=== PATIENT | female | born 1970 | race Caucasian/White ===

== ENCOUNTER → 2017-09-06 | Outpatient (CLI) | payer BC ==
[2017-09-06 14:25] LABS: MEAN CORPUSCULAR HEMOGLOBIN 29.5 pg (27.0-33.0); MEAN CORPUSCULAR HGB CONC 32.5 g/dl (32.0-36.5); MEAN CORPUSCULAR VOLUME 90.9 fl (80.0-96.0); PLATELET COUNT, AUTOMATED 268 10^3/uL (150-450); RED CELL DISTRIBUTION WIDTH 13.2 % (11.5-14.5); WHITE BLOOD COUNT 6.1 10^3/uL (4.0-10.0)
[2017-09-06 14:37] LABS: THYROXINE (T4) 7.4 UG/DL (4.5-12.0)
== END ==
LOC: M SMT 09:12
PROVIDERS: ATTEND Advanced Practice Midwife
DX: R53.83 Other fatigue (principal)

== ENCOUNTER → 2017-12-07 | Outpatient (REF) | payer BC ==
[2017-12-07 13:20] LABS: INFLUENZA A AMPLIFICATION NEGATIVE (NEGATIVE); INFLUENZA B AMPLIFICATION NEGATIVE (NEGATIVE)
== END ==
LOC: M LAB REF 12:37
DX: J11.1 Influenza due to unidentified influenza virus with other respiratory manifestations (principal)

== ENCOUNTER → 2018-11-08 | Outpatient (CLI) | payer BC ==
--- NOTE | 2018-11-08 15:38 | REP ---
Clinical: Cough and fever. Technique: PA and lateral. Findings: Left suprahilar opacity consistent with infiltrate requires followup to resolution. Cardiac silhouette is normal. Remainder of lung duggan are clear. No effusion. No pneumothorax. Skeletal structures intact. Impression: Left suprahilar infiltrate. Follow-up to resolution is recommended. Differential diagnosis includes acute pneumonia or significant pathology such as neoplasm cannot be excluded. Electronically Signed by Madhu Cortez MD 11/08/2018 03:29 P
== END ==
LOC: M RAD 14:38
PROVIDERS: ATTEND Physician Assistant
DX: R05 Cough (principal); R50.9 Fever, unspecified; R91.8 Other nonspecific abnormal finding of lung field

== ENCOUNTER → 2018-11-08 | Outpatient (REF) | payer BC ==
[2018-11-08 15:50] LABS: INFLUENZA A AMPLIFICATION NEGATIVE (NEGATIVE); INFLUENZA B AMPLIFICATION NEGATIVE (NEGATIVE)
== END ==
LOC: M LAB REF 10:45
PROVIDERS: ATTEND Physician Assistant
DX: J11.1 Influenza due to unidentified influenza virus with other respiratory manifestations (principal)

== ENCOUNTER → 2018-11-18 | Outpatient (CLI) | payer BC ==
[2018-11-18 17:55] LABS: HEMATOCRIT 42.3 % (36.0-47.0); HEMOGLOBIN 13.8 g/dl (12.0-15.5); MEAN CORPUSCULAR HEMOGLOBIN 28.4 pg (27.0-33.0); MEAN CORPUSCULAR HGB CONC 32.6 g/dl (32.0-36.5); PLATELET COUNT, AUTOMATED 262 10^3/uL (150-450); RED BLOOD COUNT 4.86 10^6/uL (4.00-5.40); WHITE BLOOD COUNT 7.8 10^3/uL (4.0-10.0)
[2018-11-18 18:01] LABS: FREE T4 0.86 NG/DL (0.76-1.46)
[2018-11-18 18:02] LABS: FOLLICLE STIMULATING HORMONE 3.1 mIU/mL; LUTEINIZING HORMONE 3.8 mIU/mL
[2018-11-18 18:07] LABS: HCG, SERUM QUALITATIVE NEGATIVE (NEGATIVE)
[2018-11-21 16:26] LABS: HPV HYBRID CAPTURE II Negative (Negative)
== END ==
LOC: M SMT 10:20
PROVIDERS: ATTEND Advanced Practice Midwife
DX: N92.4 Excessive bleeding in the premenopausal period (principal); Z11.51 Encounter for screening for human papillomavirus (HPV)
CPT/HCPCS: 36415; 83001; 83002; 84439; 84443; 84703; 85027; 87624; G0123

== ENCOUNTER → 2020-03-31 | Outpatient (CLI) | payer BC, OTHER ==
[2020-03-31 12:35] LABS: BASO # 0.1 10^3/uL (0.0-0.2); BASO % 1.9 % (0.0-1.0); EOS # 0.1 10^3/uL (0.0-0.5); EOS % 2.1 % (0.0-3.0); HEMOGLOBIN 13.6 g/dl (12.0-15.5); LYMPH # 1.7 10^3/uL (1.5-5.0); LYMPH % 29.8 % (24.0-44.0); MEAN CORPUSCULAR HEMOGLOBIN 29.7 pg (27.0-33.0); MEAN CORPUSCULAR HGB CONC 32.4 g/dl (32.0-36.5); MEAN CORPUSCULAR VOLUME 91.7 fl (80.0-96.0); MONO # 0.4 10^3/uL (0.0-0.8); MONO % 6.4 % (0.0-5.0); NEUTROPHILS # 3.4 10^3/uL (1.5-8.5); NEUTROPHILS % 59.5 % (36.0-66.0); PLATELET COUNT, AUTOMATED 242 10^3/uL (150-450); RED BLOOD COUNT 4.58 10^6/uL (4.00-5.40); WHITE BLOOD COUNT 5.8 10^3/uL (4.0-10.0)
[2020-03-31 12:55] LABS: BLOOD UREA NITROGEN 14 MG/DL (7-18); CALCIUM LEVEL 8.6 MG/DL (8.5-10.1); CARBON DIOXIDE LEVEL 27 MEQ/L (21-32); CHLORIDE LEVEL 109 MEQ/L (98-107); CREATININE FOR GFR 0.74 MG/DL (0.55-1.30); GLOMERULAR FILTRATION RATE > 60.0 (>58); GLUCOSE, FASTING 90 MG/DL (70-100); POTASSIUM SERUM 4.5 MEQ/L (3.5-5.1); SODIUM LEVEL 141 MEQ/L (136-145)
[2020-03-31 13:06] LABS: MALB URINE SIEMENS 7.4 MG/L; MAU/CREAT RATIO 5.1 MCG/MG (0.0-30.0)
[2020-03-31 13:19] LABS: APPEARANCE, URINE CLEAR (CLEAR); BACTERIA, URINE AUTO NEGATIVE (NEGATIVE); BILIRUBIN, URINE AUTO NEGATIVE (NEGATIVE); BLOOD, URINE BLOOD NEGATIVE (NEGATIVE); COLOR, URINE YELLOW (YELLOW); GLUCOSE, URINE (UA) AUTO NEGATIVE (NEGATIVE); KETONE, URINE AUTO NEGATIVE (NEGATIVE); LEUKOCYTE ESTERASE, URINE AUTO NEGATIVE (NEGATIVE); NITRITE, URINE AUTO NEGATIVE (NEGATIVE); PROTEIN, URINE AUTO NEGATIVE (NEGATIVE); RBC, URINE AUTO 2 /HPF (0-3); SQUAMOUS EPITHELIAL CELL UR AU 1 /HPF (0-6); UROBILINOGEN, URINE AUTO 0.2 mg/dL (0.0-2.0); WBC, URINE AUTO 0 /HPF (0-3)
[2020-03-31 13:34] LABS: HEMOGLOBIN A1c 5.9 %
== END ==
LOC: M WUC 10:21
PROVIDERS: ATTEND Internal Medicine Nephrology
DX: Z00.5 Encounter for examination of potential donor of organ and tissue (principal)

== ENCOUNTER → 2020-04-15 | Outpatient (CLI) | payer OTHER ==
[2020-04-15 10:45] LABS: APPEARANCE, URINE CLEAR (CLEAR); BACTERIA, URINE AUTO 1+ (NEGATIVE); BILIRUBIN, URINE AUTO NEGATIVE (NEGATIVE); BLOOD, URINE BLOOD NEGATIVE (NEGATIVE); COLOR, URINE YELLOW (YELLOW); GLUCOSE, URINE (UA) AUTO NEGATIVE (NEGATIVE); KETONE, URINE AUTO NEGATIVE (NEGATIVE); LEUKOCYTE ESTERASE, URINE AUTO NEGATIVE (NEGATIVE); MUCUS, URINE SMALL (NEGATIVE); NITRITE, URINE AUTO NEGATIVE (NEGATIVE); PROTEIN, URINE AUTO NEGATIVE (NEGATIVE); RBC, URINE AUTO 0 /HPF (0-3); SPECIFIC GRAVITY URINE AUTO 1.014 (1.002-1.035); SQUAMOUS EPITHELIAL CELL UR AU 0 /HPF (0-6); UROBILINOGEN, URINE AUTO 0.2 mg/dL (0.0-2.0); WBC, URINE AUTO 1 /HPF (0-3)
[2020-04-15 11:09] LABS: GLOMERULAR FILTRATION RATE > 60.0 (>58)
[2020-04-15 11:20] LABS: MALB URINE SIEMENS 5.9 MG/L; MAU/CREAT RATIO 4.2 MCG/MG (0.0-30.0)
[2020-04-15 11:23] LABS: CREATININE 24 HOUR, URINE 1407.9 MG/24HR (600-1800); CREATININE, URINE 72.2 MG/DL; TOTAL PROTEIN 24 HOUR URINE 128.7 MG/24HR (50-150); URINE TOTAL PROTEIN 6.6 MG/DL (0-12)
== END ==
LOC: M LAB 09:52
PROVIDERS: ATTEND Internal Medicine Nephrology
DX: Z00.5 Encounter for examination of potential donor of organ and tissue (principal)

== ENCOUNTER → 2020-10-14 | Outpatient (CLI) | payer OTHER ==
[~2020-10-14] MED LIST: ALBU8.5H; FAMO40TA3; METH27TA5; SERT-138
== END ==
LOC: M LABSMTC 12:42
PROVIDERS: ATTEND Anesthesiology
DX: Z01.812 Encounter for preprocedural laboratory examination (principal); Z20.828 Contact with and (suspected) exposure to other viral communicable diseases

== ENCOUNTER 2020-10-19 09:10 | Day surgery (SDC) | payer BC ==
[~2020-10-19] VITALS: Ht 167.6 cm; Wt 85.3 kg
[~2020-10-19 09:10] MED LIST changes: +NS 1,000 ML IV ONE
[2020-10-19] MEDS ORDERED: propofoL 200 MG/20 ML VIAL As Ordered ONE ×2 (10:35→11:15)
[2020-10-19] MEDS ORDERED: fentaNYL 100 MCG/2 ML INJECTION (J3010) As Ordered ONE (10:35)
[2020-10-19] MEDS ORDERED: LIDOCAINE 2% 100MG/5ML SDV (FOR ANES.) As Ordered ONE (10:35)
--- NOTE | 2020-10-19 11:24 | ROOR ---
Patient Name: Anna Souza Procedure Date: 10/19/2020 11:05 AM Date of : 1970 Age: 50 Room: [facility] Gender: Female Note Status: Finalized Procedure: Upper Endoscopy + Biopsies Indications: Heartburn, Exclusion of Castellano's esophagus Providers: Noe Ingram MD Referring MD: Tino Venegas MD Requesting Provider: Medicines: Monitored Anesthesia Care Complications: No immediate complications. Procedure: Pre-Anesthesia Assessment: - The heart rate, respiratory rate, oxygen saturations, blood pressure, adequacy of pulmonary ventilation, and response to care were monitored throughout the procedure. The Endoscope was introduced through the mouth, and advanced to the second part of duodenum. The upper GI endoscopy was accomplished without difficulty. The patient tolerated the procedure well. Findings: The Z-line was variable and was found 35 cm from the incisors. Multiple biopsies were obtained with cold forceps for evaluation to rule out Castellano's Esophagus randomly at the gastroesophageal junction. A small hiatal hernia was present. Localized mild inflammation characterized by congestion (edema) and erythema was found in the gastric antrum. Biopsies were taken with a cold forceps for Helicobacter pylori testing. The exam of the duodenum was otherwise normal. Impression: - Z-line variable, 35 cm from the incisors. - Small hiatal hernia. - Mucosal changes suspicious for gastritis. Biopsied. - Multiple biopsies were obtained at the gastroesophageal junction. - The examination was otherwise normal. Recommendation: - Patient has a contact number available for emergencies. The signs and symptoms of potential delayed complications were discussed with the patient. Return to normal activities tomorrow. Written discharge instructions were provided to the patient. - High fiber diet. - Discharge patient to home. - Follow an antireflux regimen. - Continue present medications. - Await pathology results. - Telephone GI clinic for pathology results in 1 week. - Return to referring physician. - The findings and recommendations were discussed with the patient. Procedure Code(s): --- Professional --- 28377, Esophagogastroduodenoscopy, flexible, transoral; with biopsy, single or multiple Diagnosis Code(s): --- Professional --- K22.8, Other specified diseases of esophagus K44.9, Diaphragmatic hernia without obstruction or gangrene K31.89, Other diseases of stomach and duodenum R12, Heartburn CPT copyright 2019 [employer]. All rights reserved. The codes documented in this report are preliminary and upon hims coder review may be revised to meet current compliance requirements. Noe Ingram MD Noe Ingram MD 10/19/2020 11:24:11 AM Electronically signed by Noe Ingram MD Number of Addenda: 0 Note Initiated On: 10/19/2020 11:05 AM Estimated Blood Loss: Estimated blood loss: none.
--- NOTE | 2020-10-19 11:36 | ROOR ---
Patient Name: Anna Souza Procedure Date: 10/19/2020 11:06 AM Date of : 1970 Age: 50 Room: [facility] Gender: Female Note Status: Finalized Procedure: Total Colonoscopy to Cecum + ileoscopy Indications: Screening for colorectal malignant neoplasm, Incidental - Preoperative assessment Providers: Noe Ingram MD Referring MD: Tino Venegas MD Requesting Provider: Medicines: Monitored Anesthesia Care Complications: No immediate complications. Procedure: Pre-Anesthesia Assessment: - The heart rate, respiratory rate, oxygen saturations, blood pressure, adequacy of pulmonary ventilation, and response to care were monitored throughout the procedure. The Colonoscope was introduced through the anus and advanced to the terminal ileum. The colonoscopy was performed without difficulty. The patient tolerated the procedure well. The quality of the bowel preparation was excellent. Findings: The perianal and digital rectal examinations were normal. Non-bleeding internal hemorrhoids were found during retroflexion. The hemorrhoids were small and Grade I (internal hemorrhoids that do not prolapse). No other significant abnormalities were identified in a careful examination of the remainder of the colon. The terminal ileum appeared normal. The exam was otherwise without abnormality on direct and retroflexion views. Impression: - Non-bleeding internal hemorrhoids. - The examined portion of the ileum was normal. - The examination was otherwise normal on direct and retroflexion views. - No specimens collected. - The exam was otherwise normal to the cecum. Recommendation: - Patient has a contact number available for emergencies. The signs and symptoms of potential delayed complications were discussed with the patient. Return to normal activities tomorrow. Written discharge instructions were provided to the patient. - High fiber diet. - Discharge patient to home. - Continue present medications. - Repeat colonoscopy in 10 years for screening purposes. - Return to referring physician. - The findings and recommendations were discussed with the patient. Procedure Code(s): --- Professional --- 27115, Colonoscopy, flexible; diagnostic, including collection of specimen(s) by brushing or washing, when performed (separate procedure) Diagnosis Code(s): --- Professional --- Z12.11, Encounter for screening for malignant neoplasm of colon K64.0, First degree hemorrhoids CPT copyright 2019 [employer]. All rights reserved. The codes documented in this report are preliminary and upon commercial project manager review may be revised to meet current compliance requirements. Noe Ingram MD Noe Ingram MD 10/19/2020 11:36:15 AM Electronically signed by Noe Ingram MD Number of Addenda: 0 Note Initiated On: 10/19/2020 11:06 AM Estimated Blood Loss: Estimated blood loss: none.
[2020-10-19 11:58] VITALS: BP 113/79
== END 2020-10-19 11:59 | disposition home or self-care (01) ==
LOC: M OPP 09:10
PROVIDERS: ATTEND Internal Medicine Gastroenterology
DX: Z12.11 Encounter for screening for malignant neoplasm of colon (principal); K64.0 First degree hemorrhoids; K22.8 Other specified diseases of esophagus; K44.9 Diaphragmatic hernia without obstruction or gangrene; K31.89 Other diseases of stomach and duodenum; R12 Heartburn; Z79.899 Other long term (current) drug therapy; Z88.1 Allergy status to other antibiotic agents; Z88.3 Allergy status to other anti-infective agents
CPT/HCPCS: 43239; 45378; 88305; J3010

== ENCOUNTER → 2021-03-02 | Outpatient (CLI) | payer BC ==
[~2021-03-02] MED LIST changes: -NS 1,000 ML IV ONE
== END ==
LOC: M WHC 09:06
PROVIDERS: ATTEND Advanced Practice Midwife
DX: Z12.31 Encounter for screening mammogram for malignant neoplasm of breast (principal)

== ENCOUNTER → 2021-05-30 | Outpatient (REF) | payer BC ==
[~2021-05-30] MED LIST changes: +D31000TA2 PO; -FAMO40TA3; +FAMO40TA3 PO; +MELA5TAB47 PO; +ZOLO100T PO
== END ==
LOC: M SFHCWAGY 19:12
PROVIDERS: ATTEND Obstetrics & Gynecology
DX: N93.9 Abnormal uterine and vaginal bleeding, unspecified (principal)

== ENCOUNTER → 2021-06-01 | Outpatient (CLI) | payer BC ==
--- NOTE | 2021-06-01 12:37 | REP ---
INDICATION: N93.9 AUB. COMPARISON: None. TECHNIQUE: Transabdominal and transvaginal scanning performed. FINDINGS: Uterine dimensions are 13.3 x 5.4 x 6.0 cm. Endometrial echo is 5 mm in AP dimension and centrally placed. The uterus is enlarged and heterogeneous in echotexture. A discrete fibroid is seen on the right posteriorly measuring 1.2 x 0.7 x 1.5 cm. A fibroid along the left endometrial echo complex measures 1.7 x 1.3 x 1.2 cm. The bladder measures 13.6 x 7.9 x 8.6cm. The right ovary has dimensions of 3.0 x 1.8 x 2.3 cm. It's Doppler flow is normal with a resistive index of 0.64. The left ovary dimensions are 6.0 x 4.1 x 4.5 cm. It's Doppler flow was normal with resistive index of 0.74. There is no adnexal mass identified. No free fluid is seen in the cul-de-sac. IMPRESSION: Fibroid uterus. Endometrial thickness 5 mm. <Electronically signed by Jarrod Ballard > 06/01/21 [id number]
== END ==
LOC: M WHC 08:35
PROVIDERS: ATTEND Obstetrics & Gynecology
DX: D25.9 Leiomyoma of uterus, unspecified (principal)

== ENCOUNTER → 2021-06-05 | Outpatient (REF) | payer BC | LOC: M LABSMTC 10:16 → M LAB REF 10:16 | PROVIDERS: ATTEND Obstetrics & Gynecology | DX: Z01.818 Encounter for other preprocedural examination (principal); N93.9 Abnormal uterine and vaginal bleeding, unspecified; Z11.52 Encounter for screening for COVID-19 ==

== ENCOUNTER 2021-06-09 11:00 | Day surgery (SDC) | payer BC ==
[~2021-06-09] VITALS: Ht 165.1 cm; Wt 91.1 kg
[2021-06-09] MEDS ORDERED: METH27TA5 PO (11:16)
[2021-06-09 12:07] LABS: HEMATOCRIT 38.9 % (36.0-47.0); HEMOGLOBIN 12.6 g/dl (12.0-15.5); MEAN CORPUSCULAR HGB CONC 32.4 g/dl (32.0-36.5); MEAN CORPUSCULAR VOLUME 89.4 fl (80.0-96.0); PLATELET COUNT, AUTOMATED 220 10^3/uL (150-450); RED BLOOD COUNT 4.35 10^6/uL (4.00-5.40); WHITE BLOOD COUNT 6.4 10^3/uL (4.0-10.0)
[2021-06-09] MEDS ORDERED: SILVER NITRATE APPLICATOR As Ordered ONE (12:43)
[2021-06-09] MEDS ORDERED: fentaNYL 100 MCG/2 ML INJECTION (J3010) As Ordered ONE (12:45)
[2021-06-09] MEDS ORDERED: LIDOCAINE 2% 100MG/5ML SDV (FOR ANES.) As Ordered ONE (12:45)
[2021-06-09] MEDS ORDERED: MIDAZOLAM INJ 2MG/2ML VIAL (J2250 PER 1MG) As Ordered ONE (12:45)
[2021-06-09] MEDS ORDERED: propofoL 200 MG/20 ML VIAL As Ordered ONE (12:45)
[2021-06-09] MEDS ORDERED: METOCLOPRAMIDE INJ 10MG/2ML VIAL (J2765 PER 1) As Ordered ONE (13:04)
[2021-06-09] MEDS ORDERED: dexameTHASONE 4 MG/ML 1ML VIAL (J1100 PER 1MG) As Ordered ONE (13:04)
[2021-06-09] MEDS ORDERED: KETOROLAC 60MG 2ML VIAL As Ordered ONE (13:06)
[2021-06-09] MEDS ORDERED: ACETAMINOPHEN 1000MG 100ML IV BTL (OFIRMEV) (J0131 PER 10MG) As Ordered ONE (13:06)
[2021-06-09] MEDS ORDERED: ONDANSETRON 4MG/2ML VIAL As Ordered ONE (13:06)
--- NOTE | 2021-06-09 13:54 | ROOPDOC ---
[facility] Report Of Operation Report of Operation DATE OF OPERATION: 06/09/2021 PREOPERATIVE DIAGNOSIS: Abnormal uterine bleeding, uterine leiomyomas POSTOPERATIVE DIAGNOSIS: Abnormal uterine bleeding, uterine leiomyomas PROCEDURES PERFORMED: Hysteroscopy dilatation and curettage (D&C), NovaSure endometrial ablation. SURGEON: Marley Gutierrez DO SALES AND LEASING CONSULTANT: None. ANESTHESIA: General via laryngeal mask airway (LMA). SPECIMEN(S) SENT TO PATHOLOGY: Endometrial curettings. ESTIMATED BLOOD LOSS: 10 mL. FLUIDS REPLACED: 600 mL lactated ringers. DRAINS: In and out catheter. URINE OUTPUT: 100 mL. COMPLICATIONS: None. PREOPERATIVE ANTIBIOTICS: None indicated. INTRAOPERATIVE FINDINGS: Cavity length was 6.5 cm. Cavity width 3.5 cm. Power, 125 matos. Radiofrequency ablation time 1 minute and 4 seconds. Small, less than 2 cm submucosal fibroid on hysteroscopy examination, not impinging/obstructing the cavity. No evidence of uterine perforation post ablation. INDICATIONS FOR PROCEDURE: Abnormal uterine bleeding/persistent postmenopausal bleeding. Previous endometrial biopsy reveals benign endometrium. DESCRIPTION OF PROCEDURE: The patient was counseled and consented on the risks, benefits, indications, and alternatives of the procedure. Informed consent was obtained. She was taken to the operating room with an IV running and positioned on the operating room table in the dorsal supine position. General anesthesia was administered and airway secured without any difficulty. She was positioned in the high lithotomy position. She was prepared and draped in the normal sterile fashion. The bladder was drained with a sterile in and out catheter. A sterile speculum was placed with good visualization of the cervix. The anterior lip of the cervix was grasped with a single-tooth tenaculum. Downward traction was applied. The cervix was sequentially dilated with Cory dilators up to a #18. The uterus was sounded to 9 cm with a cervical length of 2.5 cm. The hysteroscope was placed transcervically into the intrauterine cavity with the findings noted above. No endometrial mass. Normal intrauterine cavity. The hysteroscope was removed. A sharp curettage was performed throughout the entire intrauterine cavity with minimal tissue return. The NovaSure device was placed transcervically into the intrauterine cavity and deployed in typical fashion. A cavity assessment was performed. The cavity assessment cleared and the ablation was activated. The radiofrequency ablation time was 1 minute and 4 seconds. The device was removed in typical fashion without any difficulty. The hysteroscope was placed transcervically into the intrauterine cavity. Excellent intrauterine distention was noted. No evidence of uterine perforation. Evidence of ablation was noted throughout the cavity, but I did note that a small area at the level of the fundus was free of ablation. The hysteroscope was removed. The single- tooth tenaculum was removed. The tenaculum sites were hemostatic. All instruments were removed from the vagina. The patient tolerated the entire procedure very well. She was transferred to the post anesthesia care unit (PACU) in good and stable condition. Sponge and instrument counts were correct per protocol. MARLEY GUTIERREZ DO Jun 09, 2021 13:54
[2021-06-09] MEDS ORDERED: HYDROMORPHONE HCL 0.5 MG/ 0.5 ML SYRINGE (J1170 PER 1) IV PRN (14:10)
[2021-06-09] MEDS ORDERED: LR 1,000 ML IV SCH ×2 (14:10)
[2021-06-09] MEDS ORDERED: oxyCODONE 5MG TAB PO PRN (14:10)
[2021-06-09] MEDS ORDERED: ONDANSETRON 4MG/2ML VIAL IV PRN (14:10)
[2021-06-09] MEDS ORDERED: fentaNYL 100 MCG/2 ML INJECTION (J3010) IV PRN (14:10)
[2021-06-09] MEDS ORDERED: OXYC1TAB23 PO (14:50)
[2021-06-09 15:23] VITALS: BP 100/60
== END 2021-06-09 15:30 | disposition home or self-care (01) ==
LOC: M SDC 11:00
PROVIDERS: ATTEND Obstetrics & Gynecology
DX: N93.9 Abnormal uterine and vaginal bleeding, unspecified (principal); D25.9 Leiomyoma of uterus, unspecified; K21.9 Gastro-esophageal reflux disease without esophagitis; Z86.711 Personal history of pulmonary embolism; F90.9 Attention-deficit hyperactivity disorder, unspecified type; F32.9 Major depressive disorder, single episode, unspecified; F41.9 Anxiety disorder, unspecified; J45.909 Unspecified asthma, uncomplicated; Z79.51 Long term (current) use of inhaled steroids; Z79.899 Other long term (current) drug therapy; Z88.2 Allergy status to sulfonamides; Z88.1 Allergy status to other antibiotic agents
CPT/HCPCS: 36415; 58563; 85027; 86850; 86900; 86901; 88304; J0131; J1100; J1885; J2250; J2405; J2765; J3010

== ENCOUNTER → 2021-09-28 | Outpatient (REF) | payer BC ==
[~2021-09-28] MED LIST changes: +METH27TA5 PO; +OXYC1TAB23 PO
[2021-09-28 17:45] LABS: RSV AMPLIFICATION NEGATIVE (NEGATIVE)
== END ==
LOC: M LAB REF 16:26
PROVIDERS: ATTEND Physician Assistant Medical
DX: Z20.828 Contact with and (suspected) exposure to other viral communicable diseases (principal)

== ENCOUNTER 2022-02-09 18:19 | Emergency (ER) | payer BC ==
[~2022-02-09] VITALS: Ht 165.1 cm; Wt 94.7 kg
[~2022-02-09 18:19] MED LIST changes: -PRED20TA PO
[2022-02-09] MEDS ORDERED: GI COCKTAIL 50ML BTL(HYOSCYAMINE/MAALOX/LIDOCAINE VISCOUS)(1:3:1) PO ONE (19:50)
[2022-02-09 19:55] LABS: BASO # 0.1 10^3/uL (0.0-0.2); BASO % 1.6 % (0.0-1.0); EOS # 0.1 10^3/uL (0.0-0.5); EOS % 1.7 % (0.0-3.0); HEMATOCRIT 38.4 % (36.0-47.0); HEMOGLOBIN 12.5 g/dl (12.0-15.5); LYMPH # 2.2 10^3/uL (1.5-5.0); LYMPH % 29.6 % (24.0-44.0); MEAN CORPUSCULAR HEMOGLOBIN 29.9 pg (27.0-33.0); MEAN CORPUSCULAR HGB CONC 32.6 g/dl (32.0-36.5); MEAN CORPUSCULAR VOLUME 91.9 fl (80.0-96.0); MONO # 0.6 10^3/uL (0.0-0.8); MONO % 7.5 % (2.0-8.0); NEUTROPHILS # 4.5 10^3/uL (1.5-8.5); NEUTROPHILS % 59.3 % (36.0-66.0); PLATELET COUNT, AUTOMATED 227 10^3/uL (150-450); RED BLOOD COUNT 4.18 10^6/uL (4.00-5.40); WHITE BLOOD COUNT 7.6 10^3/uL (4.0-10.0)
[2022-02-09 20:16] LABS: INR 0.97; PROTHROMBIN TIME 13.3 SECONDS (12.7-14.5)
[2022-02-09 20:24] LABS: CK-MB VALUE MASS < 1.0 NG/ML (<3.6); CPK CREATINE PHOSPHOKINASE 198 U/L (26-192); MB/CK RELATIVE INDEX 0.51 (< OR =4)
[2022-02-09 20:29] LABS: ALBUMIN 3.6 GM/DL (3.2-5.2); BILIRUBIN,DIRECT 0.1 MG/DL (0.0-0.2); BILIRUBIN,TOTAL 0.3 MG/DL (0.2-1.0); CALCIUM LEVEL 8.9 MG/DL (8.5-10.1); CREATININE FOR GFR 1.08 MG/DL (0.55-1.30); FREE T4 0.91 NG/DL (0.76-1.46); GLOMERULAR FILTRATION RATE 56.9 (>51); POTASSIUM SERUM 4.2 MEQ/L (3.5-5.1); THYROID STIMULATING HORMONE 2.64 uIU/ML (0.358-3.740); TOTAL PROTEIN 7.2 GM/DL (6.4-8.2)
[2022-02-09] MEDS ORDERED: ISOVUE-370 76% 100ML VIAL As Ordered ONE (20:31)
[2022-02-09] MEDS ORDERED: predniSONE 20 MG TAB PO ONE (22:00)
[2022-02-09 22:04] VITALS: BP 146/92
[2022-02-09] MEDS ORDERED: PRED20TA PO (22:09)
== END 2022-02-09 22:38 | disposition home or self-care (01) ==
LOC: M ED 18:19
DX: F90.9 Attention-deficit hyperactivity disorder, unspecified type (principal); R94.31 Abnormal electrocardiogram [ECG] [EKG]; K21.9 Gastro-esophageal reflux disease without esophagitis; F10.10 Alcohol abuse, uncomplicated; Z88.2 Allergy status to sulfonamides; Z88.0 Allergy status to penicillin; Z79.51 Long term (current) use of inhaled steroids; Z79.899 Other long term (current) drug therapy
CPT/HCPCS: 36415; 71045; 71275; 80048; 80076; 82550; 82553; 83690; 83880; 84439; 84443; 84484; 85025; 85610; 93005; 93041; 94760; 99285; J7512; Q9967

== ENCOUNTER → 2022-02-09 | Outpatient (REF) | payer BC ==
[~2022-02-09] MED LIST changes: -D31000TA2 PO; +PRED20TA PO; +VITA100093 PO
[2022-02-09 16:54] LABS: CK-MB VALUE MASS < 1.0 NG/ML (<3.6); CPK CREATINE PHOSPHOKINASE 189 U/L (26-192); MB/CK RELATIVE INDEX 0.53 (< OR =4)
== END ==
LOC: M LAB REF 16:13
PROVIDERS: ATTEND Family Medicine
DX: R06.02 Shortness of breath (principal); R07.89 Other chest pain

== ENCOUNTER 2022-03-14 14:59 | Emergency (ER) | payer BC ==
[~2022-03-14] VITALS: Ht 165.1 cm; Wt 94.2 kg
[~2022-03-14 14:59] MED LIST changes: +PRED20TA PO
[2022-03-14] MEDS ORDERED: ASPI81CH33 PO (15:11)
[2022-03-14 16:06] LABS: BASO # 0.1 10^3/uL (0.0-0.2); BASO % 1.7 % (0.0-1.0); EOS # 0.2 10^3/uL (0.0-0.5); EOS % 2.6 % (0.0-3.0); HEMATOCRIT 39.3 % (36.0-47.0); LYMPH % 28.7 % (24.0-44.0); MEAN CORPUSCULAR HEMOGLOBIN 30.2 pg (27.0-33.0); MEAN CORPUSCULAR HGB CONC 33.1 g/dl (32.0-36.5); MEAN CORPUSCULAR VOLUME 91.2 fl (80.0-96.0); MONO # 0.5 10^3/uL (0.0-0.8); MONO % 7.4 % (2.0-8.0); NEUTROPHILS # 4.2 10^3/uL (1.5-8.5); NEUTROPHILS % 59.3 % (36.0-66.0); PLATELET COUNT, AUTOMATED 221 10^3/uL (150-450); RED BLOOD COUNT 4.31 10^6/uL (4.00-5.40)
[2022-03-14 16:17] LABS: INR 0.93; PROTHROMBIN TIME 12.9 SECONDS (12.7-14.5)
[2022-03-14 16:18] LABS: PARTIAL THROMBOPLASTIN TIME 26.8 SECONDS (25.9-37.0)
[2022-03-14 16:20] LABS: D-DIMER QUANT 534.92 ng/ml (<500)
[2022-03-14 16:27] LABS: ERYTHROCYTE SEDIMENTATION RATE 10 mm/hr (0-30)
[2022-03-14 16:44] LABS: ALBUMIN 3.8 GM/DL (3.2-5.2); ALT/SGPT 13 U/L (12-78); BILIRUBIN,DIRECT < 0.1 MG/DL (0.0-0.2); BILIRUBIN,TOTAL 0.2 MG/DL (0.2-1.0); BLOOD UREA NITROGEN 14 MG/DL (7-18); C REACTIVE PROTEIN QUANTITATIV 0.47 MG/DL (0.00-0.30); CALCIUM LEVEL 9.4 MG/DL (8.5-10.1); CARBON DIOXIDE LEVEL 27 MEQ/L (21-32); CHLORIDE LEVEL 107 MEQ/L (98-107); GLOMERULAR FILTRATION RATE > 60.0 (>51); GLUCOSE, FASTING 99 MG/DL (70-100); NT-PRO BNP 31 PG/ML (<125); POTASSIUM SERUM 4.3 MEQ/L (3.5-5.1); SODIUM LEVEL 140 MEQ/L (136-145)
[2022-03-14 16:46] LABS: CK-MB VALUE MASS < 1.0 NG/ML (<3.6); CPK CREATINE PHOSPHOKINASE 153 U/L (26-192); MB/CK RELATIVE INDEX 0.65 (< OR =4)
[2022-03-14] MEDS ORDERED: ISOVUE-370 76% 100ML VIAL As Ordered ONE (17:01)
[2022-03-14 17:51] LABS: CK-MB VALUE MASS < 1.0 NG/ML (<3.6); CPK CREATINE PHOSPHOKINASE 165 U/L (26-192); MB/CK RELATIVE INDEX 0.61 (< OR =4)
[2022-03-14] MEDS ORDERED: Holter Monitor (18:55)
[2022-03-14 19:00] VITALS: BP 151/88
== END 2022-03-14 19:03 | disposition home or self-care (01) ==
LOC: M ED 14:59
DX: R07.9 Chest pain, unspecified (principal); R00.2 Palpitations; R94.31 Abnormal electrocardiogram [ECG] [EKG]; K21.9 Gastro-esophageal reflux disease without esophagitis; F10.10 Alcohol abuse, uncomplicated; Z88.2 Allergy status to sulfonamides; Z88.1 Allergy status to other antibiotic agents
CPT/HCPCS: 36415; 71045; 71275; 80048; 80076; 82550; 82553; 83880; 84443; 84484; 85025; 85379; 85610; 85652; 85730; 86140; 87486; 87581; 87633; 87798; 93005; 93041; 94760; 99285; Q9967

== ENCOUNTER → 2022-03-17 | Outpatient (CLI) | payer BC ==
[~2022-03-17] MED LIST changes: +ASPI81CH33 PO; +Holter Monitor
== END ==
LOC: M EKG 09:13
PROVIDERS: ATTEND Internal Medicine
DX: R00.2 Palpitations (principal)

== ENCOUNTER → 2022-04-24 | Outpatient (CLI) | payer BC | LOC: M SLEEP HO 14:15 | PROVIDERS: ATTEND Internal Medicine Cardiovascular Disease | DX: R06.83 Snoring (principal) ==

== ENCOUNTER → 2022-08-14 | Outpatient (REF) | payer BC | LOC: M SFHCWAGY 12:55 | PROVIDERS: ATTEND Specialist | DX: Z12.4 Encounter for screening for malignant neoplasm of cervix (principal) | CPT/HCPCS: 87624; G0123 ==

== ENCOUNTER → 2022-08-14 | Outpatient (CLI) | payer BC | LOC: M WHC 09:11 | PROVIDERS: ATTEND Specialist | DX: Z12.31 Encounter for screening mammogram for malignant neoplasm of breast (principal) ==

== ENCOUNTER 2022-12-23 18:30 | Day surgery (SDC) | payer BC ==
[~2022-12-23] VITALS: Ht 165.1 cm; Wt 95.0 kg
[~2022-12-23 18:30] MED LIST changes: -ALBU8.5H; +ALBU8.5H PO
[2022-12-23] MEDS ORDERED: BUDE10.22 INH (18:47)
[2022-12-23 19:20] LABS: BASO # 0.1 10^3/uL (0.0-0.2); BASO % 0.9 % (0.0-1.0); EOS # 0.2 10^3/uL (0.0-0.5); EOS % 1.4 % (0.0-3.0); HEMATOCRIT 41.1 % (36.0-47.0); HEMOGLOBIN 13.3 g/dl (12.0-15.5); LYMPH # 1.9 10^3/uL (1.5-5.0); MEAN CORPUSCULAR HGB CONC 32.4 g/dl (32.0-36.5); MEAN CORPUSCULAR VOLUME 92.6 fl (80.0-96.0); MONO # 0.9 10^3/uL (0.0-0.8); MONO % 6.9 % (2.0-8.0); NEUTROPHILS # 9.5 10^3/uL (1.5-8.5); NEUTROPHILS % 75.5 % (36.0-66.0); PLATELET COUNT, AUTOMATED 205 10^3/uL (150-450); RED BLOOD COUNT 4.44 10^6/uL (4.00-5.40); WHITE BLOOD COUNT 12.7 10^3/uL (4.0-10.0)
[2022-12-23 19:47] LABS: LIPASE 45 U/L (12-53)
[2022-12-23 19:53] LABS: ALBUMIN 3.9 G/DL (3.2-5.2); ALKALINE PHOSPHATASE 78 U/L (46-116); ALT/SGPT < 9 U/L (7.0-40); AST/SGOT 22 U/L (<34); BILIRUBIN,DIRECT 0.1 MG/DL (<0.4); BILIRUBIN,TOTAL 0.4 MG/DL (0.3-1.2); BLOOD UREA NITROGEN 13 MG/DL (9-23); CALCIUM LEVEL 8.8 MG/DL (8.5-10.1); CARBON DIOXIDE LEVEL 28 MMOL/L (20-31); CHLORIDE LEVEL 103 MMOL/L (98-107); CREATININE FOR GFR 0.98 MG/DL (0.55-1.30); GLOMERULAR FILTRATION RATE > 60.0 (>51); GLUCOSE, FASTING 93 MG/DL (60-100); HCG, SERUM QUALITATIVE NEGATIVE (NEGATIVE); POTASSIUM SERUM 4.1 MMOL/L (3.5-5.1); SODIUM LEVEL 138 MMOL/L (136-145)
[2022-12-23] MEDS ORDERED: NS 1,000 ML IV ONE (20:55)
[2022-12-23] MEDS ORDERED: ISOVUE-370 76% 100ML VIAL As Ordered ONE (20:58)
[2022-12-23] MEDS ORDERED: PIPERACILLIN/TAZOBACTAM SOD 3.375 GM in D5W MINI-BAG PLUS 50 ML IV ONE (21:50)
[2022-12-23] MEDS ORDERED: KETOROLAC 60MG 2ML VIAL As Ordered ONE (22:25)
[2022-12-23] MEDS ORDERED: METOCLOPRAMIDE INJ 10MG/2ML VIAL As Ordered ONE (22:25)
[2022-12-23] MEDS ORDERED: fentaNYL 100 MCG/2 ML INJECTION As Ordered ONE (22:25)
[2022-12-23] MEDS ORDERED: propofoL 200 MG/20 ML VIAL As Ordered ONE (22:25)
[2022-12-23] MEDS ORDERED: ONDANSETRON 4MG 2ML VIAL As Ordered ONE (22:25)
[2022-12-23] MEDS ORDERED: MIDAZOLAM INJ 2MG/2ML VIAL As Ordered ONE (22:25)
[2022-12-23] MEDS ORDERED: ROCURONIUM BROMIDE 50MG/5ML VIAL As Ordered ONE (22:25)
[2022-12-23] MEDS ORDERED: LIDOCAINE 2% 100MG/5ML SDV (FOR ANES.) As Ordered ONE (22:25)
[2022-12-23] MEDS ORDERED: BUPIVACAINE HCL 0.25% 30ML VIAL As Ordered ONE (22:35)
[2022-12-23] MEDS ORDERED: LIDOCAINE 1% SDV 30ML VIAL As Ordered ONE (22:35)
[2022-12-23] MEDS ORDERED: MAGN400T35 PO (22:39)
[2022-12-23] MEDS ORDERED: HOME MED LIST COMPLETE! XX SCH (22:40)
[2022-12-24] VITALS (8 sets, daily range): BP systolic 99–110; BP diastolic 62–69
[2022-12-24] MEDS ORDERED: LR 1,000 ML IV SCH (00:10)
[2022-12-24] MEDS ORDERED: PERCOCET 5MG/325MG TAB PO PRN ×2 (00:10)
[2022-12-24] MEDS ORDERED: MORPHINE 4 MG/ML 1ML VIAL IV PRN (00:10)
[2022-12-24] MEDS ORDERED: ALBUTEROL 90 MCG/ACT 8GM HFA INHALER INH PRN (00:10)
[2022-12-24] MEDS ORDERED: ONDANSETRON 4MG 2ML VIAL IV PRN (00:10)
[2022-12-24] MEDS ORDERED: PIPERACILLIN/TAZOBACTAM SOD 3.375 GM in D5W MINI-BAG PLUS 50 ML IV SCH (04:00)
[2022-12-24] MEDS: ACETAMINOPHEN TAB 650MG DOSE (2X325MG) PO PRN ×2 (04:48→10:31)
[2022-12-24 06:49] LABS: BASO # 0.1 10^3/uL (0.0-0.2); BASO % 0.5 % (0.0-1.0); LYMPH # 0.5 10^3/uL (1.5-5.0); MEAN CORPUSCULAR HEMOGLOBIN 30.1 pg (27.0-33.0); MEAN CORPUSCULAR HGB CONC 32.4 g/dl (32.0-36.5); MEAN CORPUSCULAR VOLUME 92.7 fl (80.0-96.0); MONO # 0.2 10^3/uL (0.0-0.8); MONO % 2.4 % (2.0-8.0); NEUTROPHILS # 9.2 10^3/uL (1.5-8.5); NEUTROPHILS % 91.4 % (36.0-66.0); PLATELET COUNT, AUTOMATED 187 10^3/uL (150-450); RED BLOOD COUNT 3.99 10^6/uL (4.00-5.40)
[2022-12-24 07:19] LABS: BLOOD UREA NITROGEN 10 MG/DL (9-23); CALCIUM LEVEL 7.8 MG/DL (8.5-10.1); CARBON DIOXIDE LEVEL 23 MMOL/L (20-31); CHLORIDE LEVEL 107 MMOL/L (98-107); CREATININE FOR GFR 0.94 MG/DL (0.55-1.30); GLOMERULAR FILTRATION RATE > 60.0 (>51); GLUCOSE, FASTING 130 MG/DL (60-100); POTASSIUM SERUM 4.2 MMOL/L (3.5-5.1); SODIUM LEVEL 137 MMOL/L (136-145)
[2022-12-24] MEDS ORDERED: SYMBICORT 80/4.5MCG INHALER 6GM INH SCH (08:00)
[2022-12-24] MEDS ORDERED: ENOXAPARIN 40MG/0.4ML SYRINGE (J1650 PER 10MG) SC SCH (09:00)
[2022-12-24] MEDS ORDERED: ASPIRIN 81MG CHEW TABLET PO SCH (09:00)
[2022-12-24] MEDS ORDERED: SERTRALINE HCL 50 MG TAB PO SCH (09:00)
[2022-12-24] MEDS ORDERED: VITAMIN D 1,000 INTERNATIONAL UNITS TABLET PO SCH (09:00)
[2022-12-24] MEDS ORDERED: FAMOTIDINE 20 MG TAB PO SCH (09:00)
[2022-12-24] MEDS ORDERED: AUGM500T34 PO (09:07)
[2022-12-24] MEDS ORDERED: MAGNESIUM OXIDE 400MG TAB (MAG-OX) PO SCH (21:00)
== END 2022-12-24 10:55 | disposition home or self-care (01) ==
LOC: M ED 18:30 → M SDC 18:31 → M MSPAV 12-24 00:36 → M SDC 12-24 10:55
PROVIDERS: ATTEND Surgery
DX: K35.20 Acute appendicitis with generalized peritonitis, without abscess (principal); J45.20 Mild intermittent asthma, uncomplicated; K21.9 Gastro-esophageal reflux disease without esophagitis; Z86.711 Personal history of pulmonary embolism; Z79.82 Long term (current) use of aspirin; Z79.899 Other long term (current) drug therapy; Z88.1 Allergy status to other antibiotic agents; Z88.2 Allergy status to sulfonamides
CPT/HCPCS: 36415; 44970; 74177; 80048; 80076; 81002; 83690; 84703; 85025; 87426; 88304; 94640; 96361; 96365; 96366; 96372; 96375; 99284; J1100; J1650; J1885; J2250; J2405; J2543; J2765; J3010; S0020

== ENCOUNTER → 2023-01-24 | Outpatient (REF) | payer BC ==
[~2023-01-24] MED LIST changes: +AUGM500T34 PO; +BUDE10.22 INH; +MAGN400T35 PO
== END ==
LOC: M LAB REF 16:24
PROVIDERS: ATTEND Internal Medicine
DX: M25.50 Pain in unspecified joint (principal)

== ENCOUNTER → 2023-01-31 | Outpatient (CLI) | payer BC ==
[~2023-01-31] MED LIST changes: +GASTROGRAFIN SOLUTION 30ML As Ordered ONE; +ISOVUE-370 76% 100ML VIAL As Ordered ONE
== END ==
LOC: M RAD 14:52
PROVIDERS: ATTEND Internal Medicine
DX: R10.9 Unspecified abdominal pain (principal)
CPT/HCPCS: 74177; Q9963; Q9967

== ENCOUNTER → 2023-05-02 | Outpatient (CLI) | payer BC ==
[~2023-05-02] MED LIST changes: -GASTROGRAFIN SOLUTION 30ML As Ordered ONE; -ISOVUE-370 76% 100ML VIAL As Ordered ONE
== END ==
LOC: M WHC 08:26
PROVIDERS: ATTEND Specialist
DX: R10.2 Pelvic and perineal pain (principal); N85.2 Hypertrophy of uterus; N85.8 Other specified noninflammatory disorders of uterus; D25.9 Leiomyoma of uterus, unspecified

== ENCOUNTER → 2023-09-06 | Outpatient (CLI) | payer BC | LOC: M WHC 07:42 | PROVIDERS: ATTEND Specialist | DX: Z12.31 Encounter for screening mammogram for malignant neoplasm of breast (principal) ==

== ENCOUNTER 2023-11-28 09:58 | Day surgery (SDC) | payer BC ==
[~2023-11-28] VITALS: Ht 165.1 cm; Wt 94.0 kg
[~2023-11-28 09:58] MED LIST changes: +CETI10CA13 PO; +FLON27.5; +NS 1,000 ML IV ONE; +PSEU120T19 PO
[2023-11-28] MEDS ORDERED: LIDOCAINE 2% 100MG/5ML SDV (FOR ANES.) As Ordered ONE (10:36)
[2023-11-28] MEDS ORDERED: propofoL 200 MG/20 ML VIAL As Ordered ONE (10:36)
[2023-11-28 10:56] VITALS: TEMP 97.3
[2023-11-28 11:11] VITALS: BP 114/82; O2SAT 98
== END 2023-11-28 11:19 | disposition home or self-care (01) ==
LOC: M OPP 09:58
PROVIDERS: ATTEND Internal Medicine Gastroenterology
DX: K44.9 Diaphragmatic hernia without obstruction or gangrene (principal); K31.89 Other diseases of stomach and duodenum; R12 Heartburn; Z79.1 Long term (current) use of non-steroidal anti-inflammatories (NSAID); Z79.51 Long term (current) use of inhaled steroids; Z79.82 Long term (current) use of aspirin; Z79.899 Other long term (current) drug therapy; Z88.1 Allergy status to other antibiotic agents; Z88.2 Allergy status to sulfonamides

== ENCOUNTER 2023-12-20 11:21 | Day surgery (SDC) | payer BC ==
[~2023-12-20] VITALS: Ht 165.1 cm; Wt 93.9 kg
[~2023-12-20 11:21] MED LIST changes: +LR 1,000 ML IV SCH; -NS 1,000 ML IV ONE
[2023-12-20 12:00] LABS: HEMATOCRIT 42.7 % (36.0-47.0); HEMOGLOBIN 13.8 g/dl (12.0-15.5); MEAN CORPUSCULAR HEMOGLOBIN 29.7 pg (27.0-33.0); MEAN CORPUSCULAR HGB CONC 32.3 g/dl (32.0-36.5); PLATELET COUNT, AUTOMATED 238 10^3/uL (150-450); RED BLOOD COUNT 4.64 10^6/uL (4.00-5.40); WHITE BLOOD COUNT 6.1 10^3/uL (4.0-10.0)
[2023-12-20] MEDS: ceFAZolin SOD 2 GM in IV 1 EA IV ONE (13:59)
[2023-12-20] MEDS ORDERED: fentaNYL 250 MCG/5 ML INJECTION As Ordered ONE (14:27)
[2023-12-20] MEDS ORDERED: ONDANSETRON 4MG 2ML VIAL As Ordered ONE (14:27)
[2023-12-20] MEDS ORDERED: MIDAZOLAM INJ 2MG/2ML VIAL As Ordered ONE (14:27)
[2023-12-20] MEDS ORDERED: ACETAMINOPHEN 1000MG 100ML IV BAG As Ordered ONE (14:27)
[2023-12-20] MEDS ORDERED: LIDOCAINE 2% 100MG/5ML SDV (FOR ANES.) As Ordered ONE (14:27)
[2023-12-20] MEDS ORDERED: METOCLOPRAMIDE INJ 10MG/2ML VIAL As Ordered ONE (14:27)
[2023-12-20] MEDS ORDERED: propofoL 200 MG/20 ML VIAL As Ordered ONE (14:27)
[2023-12-20] MEDS ORDERED: HYDROmorphone HCL 2MG/ML 1ML VIAL As Ordered ONE (14:27)
[2023-12-20] MEDS ORDERED: dexmedeTOMIDine (4MCG/ML)200MCG/50ML BTL (PRECEDEX) As Ordered ONE (14:27)
[2023-12-20] MEDS ORDERED: ROCURONIUM BROMIDE 50MG/5ML VIAL As Ordered ONE (14:27)
[2023-12-20] MEDS ORDERED: SUGAMMADEX SODIUM 500 MG/5 ML VIAL (BRIDION) As Ordered ONE (14:27)
[2023-12-20] MEDS ORDERED: oxyCODONE 5MG TAB PO PRN (15:20)
[2023-12-20] MEDS ORDERED: fentaNYL 100 MCG/2 ML INJECTION IV PRN (15:20)
[2023-12-20] MEDS ORDERED: MORPHINE 2 MG/ML 1ML VIAL IV PRN (15:20)
[2023-12-20] MEDS ORDERED: ONDANSETRON 4MG 2ML VIAL IV PRN (15:20)
[2023-12-20] MEDS ORDERED: OXYC1TAB23 PO (15:50)
[2023-12-20] MEDS ORDERED: LR 1,000 ML IV SCH (16:35)
[2023-12-20] MEDS ORDERED: PERCOCET 5MG/325MG TAB PO PRN (16:35)
[2023-12-20 16:54] VITALS: BP 116/62; TEMP 98.3; O2SAT 98
== END 2023-12-20 17:34 | disposition home or self-care (01) ==
LOC: M SDC 11:21
PROVIDERS: ATTEND Specialist
DX: D25.9 Leiomyoma of uterus, unspecified (principal); N83.01 Follicular cyst of right ovary; K21.9 Gastro-esophageal reflux disease without esophagitis; K29.70 Gastritis, unspecified, without bleeding; Z86.711 Personal history of pulmonary embolism; Z79.51 Long term (current) use of inhaled steroids; F41.9 Anxiety disorder, unspecified; F32.A Depression, unspecified; F90.9 Attention-deficit hyperactivity disorder, unspecified type; J45.909 Unspecified asthma, uncomplicated; Z88.0 Allergy status to penicillin; Z88.2 Allergy status to sulfonamides; Z79.82 Long term (current) use of aspirin; Z79.899 Other long term (current) drug therapy
CPT/HCPCS: 36415; 58571; 85027; 86850; 86900; 86901; 88307; J0131; J0665; J0690; J1100; J1170; J2250; J2405; J2765; J3010; S2900

== ENCOUNTER → 2024-08-13 | Outpatient (CLI) | payer BC ==
[~2024-08-13] MED LIST changes: -LR 1,000 ML IV SCH; +PROHANCE 279.3MG/ML 15ML VIAL ONE; +PROHANCE 279.3MG/ML 5ML VIAL ONE
== END ==
LOC: M PLAIMG 14:04
PROVIDERS: ATTEND Physician Assistant Medical
DX: H90.3 Sensorineural hearing loss, bilateral (principal)
CPT/HCPCS: 70553; A9576